=== PATIENT | male | born 1940 | race Caucasian/White ===

== ENCOUNTER 2020-01-23 03:41 | Emergency (ER) | payer MEDICARE, BC ==
[~2020-01-23] VITALS: Ht 170 cm; Wt 79.8 kg
[2020-01-23 04:23] LABS: BASOPHILS % (AUTO) 0 % (0-10); EOSINOPHILS % (AUTO) 0 % (0-10); HEMATOCRIT 36 % (40-54); HEMOGLOBIN 12.2 G/DL (13.3-17.7); LYMPHOCYTES # (AUTO) 0.5 X 10^3 (1.0-4.0); LYMPHOCYTES % (AUTO) 12 % (12-44); MEAN CORPUSCULAR HEMOGLOBIN 30 PG (25-34); MEAN CORPUSCULAR HGB CONC 34 G/DL (32-36); MEAN CORPUSCULAR VOLUME 89 FL (80-99); MEAN PLATELET VOLUME 10.3 FL (7.4-10.4); MONOCYTES # (AUTO) 0.3 X 10^3 (0.0-1.0); MONOCYTES % (AUTO) 6 % (0-12); NEUTROPHILS # (AUTO) 3.6 X 10^3 (1.8-7.8); NEUTROPHILS % (AUTO) 82 % (42-75); PLATELET COUNT 180 10^3/uL (130-400); RED CELL DISTRIBUTION WIDTH 13.4 % (10.0-14.5); WHITE BLOOD COUNT 4.4 10^3/uL (4.3-11.0)
--- NOTE | 2020-01-23 04:30 | ED GU-Male ---
General Chief Complaint: - Urinary Stated Complaint: ABD PAIN Source: patient Exam Limitations: no limitations History of Present Illness Date Seen by Provider: Jan 23, 2020 Time Seen by Provider: 04:12 Initial Comments Patient presents to the emergency room by private conveyance with chief complaint of inability to urinate for almost 24 hours. In the lobby of the emergency room however he was able to urinate which took away his suprapubic pain and cramping. He has a history of prostatectomy years ago. He's also had a couple polyps removed surgically but no colostomy for many years before that. No other abdominal surgeries. No fevers chills cough dysuria, discharge or diarrhea. He had a bowel movement yesterday which was normal, formed. He is on some kind of experimental medication for his prostate but does not member the name. He did not call his primary care doctor or urologist. He is not on antibiotics. He is down visiting from [facility] with his son who lives and works locally. His only other significant medical history is hypertension for which he uses medication. Allergies and Home Medications Allergies Coded Allergies: No Known Drug Allergies (Unverified , 01/23/20) Patient Home Medication List Home Medication List Reviewed: Yes Review of Systems Review of Systems Constitutional: No chills, No diaphoresis EENTM: No ear pain, No eye pain Respiratory: No cough, No short of breath Cardiovascular: No chest pain, No edema Gastrointestinal: see HPI, abdominal pain; No constipation, No diarrhea, No loss of appetite, No nausea Genitourinary: see HPI; denies dysuria Musculoskeletal: No back pain, No joint pain All Other Systemes Reviewed Negative Unless Noted: Yes Past Rpkxczk-Ycthlw-Kvrkze Hx Patient Social History Alcohol Use: Denies Use Recreational Drug Use: No Smoking Status: Never a Smoker Recent Foreign Travel: No Contact w/Someone Who Travel: No Physical Abuse: No Sexual Abuse: No Mistreated: No Fear: No Physical Exam Vital Signs Vital Signs - First Documented 01/23/20 04:02 Temp 36.9 Pulse 81 Resp 20 B/P (MAP) 129/83 (98) O2 Delivery Room Air Capillary Refill : Height, Weight, BMI Height: '" Weight: lbs. oz. kg; BMI Method: General Appearance: WD/WN, no apparent distress HEENT: PERRL/EOMI, pharynx normal Neck: full range of motion, normal inspection Cardiovascular: normal peripheral pulses, regular rate, rhythm Respiratory: no respiratory distress, no accessory muscle use Gastrointestinal: normal bowel sounds, tenderness (suprapubic) Extremities: normal inspection, no pedal edema, normal capillary refill Neurologic/Psychiatric: alert, normal mood/affect, oriented x 3 Skin: normal color, warm/dry Progress/Results/Core Measures Suspected Sepsis SIRS Temperature: Pulse: Respiratory Rate: Laboratory Tests 01/23/20 04:12: White Blood Count 4.4 Blood Pressure / Mean: Laboratory Tests 01/23/20 04:12: Creatinine 0.96, Platelet Count 180, Total Bilirubin 0.6 Results/Orders Lab Results Laboratory Tests Test 01/23/20 04:12 01/23/20 04:39 Range/Units White Blood Count 4.4 4.3-11.0 10^3/uL Red Blood Count 4.06 L 4.35-5.85 10^6/uL Hemoglobin 12.2 L 13.3-17.7 G/DL Hematocrit 36 L 40-54 % Mean Corpuscular Volume 89 80-99 FL Mean Corpuscular Hemoglobin 30 25-34 PG Mean Corpuscular Hemoglobin Concent 34 32-36 G/DL Red Cell Distribution Width 13.4 10.0-14.5 % Platelet Count 180 130-400 10^3/uL Mean Platelet Volume 10.3 7.4-10.4 FL Neutrophils (%) (Auto) 82 H 42-75 % Lymphocytes (%) (Auto) 12 12-44 % Monocytes (%) (Auto) 6 0-12 % Eosinophils (%) (Auto) 0 0-10 % Basophils (%) (Auto) 0 0-10 % Neutrophils # (Auto) 3.6 1.8-7.8 X 10^3 Lymphocytes # (Auto) 0.5 L 1.0-4.0 X 10^3 Monocytes # (Auto) 0.3 0.0-1.0 X 10^3 Eosinophils # (Auto) 0.0 0.0-0.3 10^3/uL Basophils # (Auto) 0.0 0.0-0.1 10^3/uL Sodium Level 141 135-145 MMOL/L Potassium Level 3.8 3.6-5.0 MMOL/L Chloride Level 108 H 98-107 MMOL/L Carbon Dioxide Level 20 L 21-32 MMOL/L Anion Gap 13 5-14 MMOL/L Blood Urea Nitrogen 19 H 7-18 MG/DL Creatinine 0.96 0.60-1.30 MG/DL Estimat Glomerular Filtration Rate > 60 BUN/Creatinine Ratio 20 Glucose Level 121 H 70-105 MG/DL Calcium Level 9.0 8.5-10.1 MG/DL Corrected Calcium 9.1 8.5-10.1 MG/DL Total Bilirubin 0.6 0.1-1.0 MG/DL Aspartate Amino Transf (AST/SGOT) 76 H 5-34 U/L Alanine Aminotransferase (ALT/SGPT) 19 0-55 U/L Alkaline Phosphatase 63 40-136 U/L C-Reactive Protein High Sensitivity 0.77 H 0.00-0.50 MG/DL Total Protein 7.3 6.4-8.2 GM/DL Albumin 3.9 3.2-4.5 GM/DL Urine Color YELLOW Urine Clarity CLEAR Urine pH 5.5 5-9 Urine Specific Ceres 1.025 H 1.016-1.022 Urine Protein NEGATIVE NEGATIVE Urine Glucose (UA) NEGATIVE NEGATIVE Urine Ketones NEGATIVE NEGATIVE Urine Nitrite NEGATIVE NEGATIVE Urine Bilirubin NEGATIVE NEGATIVE Urine Urobilinogen 0.2 < = 1.0 MG/DL Urine Leukocyte Esterase NEGATIVE NEGATIVE Urine RBC (Auto) 3+ H NEGATIVE Urine RBC >100 H /HPF Urine WBC 0-2 /HPF Urine Squamous Epithelial Cells 0-2 /HPF Urine Crystals NONE /LPF Urine Bacteria TRACE /HPF Urine Casts NONE /LPF Urine Mucus MODERATE H /LPF Urine Culture Indicated NO My Orders Orders - VALENCIA YUEN Ua Culture If Indicated (01/23/20 03:43) Cbc With Automated Diff (01/23/20 03:43) Comprehensive Metabolic Panel (01/23/20 03:43) Hs C Reactive Protein (01/23/20 03:43) Ed Iv/Invasive Line Start (01/23/20 03:43) Vital Signs/I&O 01/23/20 04:02 Temp 36.9 Pulse 81 Resp 20 B/P (MAP) 129/83 (98) O2 Delivery Room Air Capillary Refill : Progress Note #1: Time: 04:28 Progress Note Well-appearing, aseptic vital signs with what appears to be urinary retention/obstruction however it seems to have at least partially improved itself when he was able urinate in the lobby bathroom. Unfortunately we were unable to intercept fast enough to collect a sample. We can check some basic labs to make sure he does not have any kind of-induced renal failure. We will al so get a bladder scan bedside and see if he has any residual and this was just overflow. Patient does not want anything for pain at this time. Status post prostatectomy so most likely he has scar tissue/strictures causing outflow obstruction. Progress Note #2: Time: 04:56 Progress Note Bladder scan revealed about 260 cc. Patient's been able to urinate another 100 cc and we sent that down for testing. Creatinine and complete blood count are unremarkable. Departure Impression Primary Impression: Urinary (tract) obstruction Disposition: 01 HOME, SELF-CARE Condition: Improved Departure-Patient Inst. Decision time for Depature: 05:09 Referrals: NO,LOCAL PHYSICIAN (PCP/Family) Primary Care Physician Patient Instructions: Urinary Retention (DC) Add. 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 During business hours please call your urologist and advise them of your difficulty urinating. Return to the ER promptly if you're having difficulty urinating, increasing pain, fever, nausea or other worrisome symptoms. All discharge instructions reviewed with patient and/or family. Voiced understanding. Scripts Tamsulosin HCl (Flomax) 0.4 Mg Cap 0.4 MG PO HS for 14 Days, #14 CAP 0 Refills Prov: VALENCIA YUEN 01/23/20 VALENCIA YUEN Jan 23, 2020 04:30
[2020-01-23 04:34] LABS: ALBUMIN 3.9 GM/DL (3.2-4.5); CHLORIDE 108 MMOL/L (98-107); POTASSIUM 3.8 MMOL/L (3.6-5.0); SODIUM 141 MMOL/L (135-145)
[2020-01-23 04:36] LABS: GLUCOSE 121 MG/DL (70-105)
[2020-01-23 04:37] LABS: TOTAL PROTEIN 7.3 GM/DL (6.4-8.2)
[2020-01-23 04:38] LABS: BILIRUBIN,TOTAL 0.6 MG/DL (0.1-1.0); CARBON DIOXIDE 20 MMOL/L (21-32)
[2020-01-23 04:40] LABS: ALKALINE PHOSPHATASE 63 U/L (40-136); CREATININE SERUM 0.96 MG/DL (0.60-1.30); GFR ESTIMATED > 60
[2020-01-23 04:41] LABS: BUN/CREATININE RATIO 20
[2020-01-23 04:43] LABS: ALANINE AMINOTRANSFERASE 19 U/L (0-55)
[2020-01-23 04:49] LABS: BILIRUBIN,URINE NEGATIVE (NEGATIVE); CLARITY,URINE CLEAR; COLOR,URINE YELLOW; GLUCOSE, URINE (UA) NEGATIVE (NEGATIVE); KETONES,URINE NEGATIVE (NEGATIVE); LEUKOCYTE ESTERASE ,URINE NEGATIVE (NEGATIVE); NITRITE,URINE NEGATIVE (NEGATIVE); PH,URINE 5.5 (5-9); PROTEIN,URINE NEGATIVE (NEGATIVE)
[2020-01-23 05:04] LABS: BACTERIA,URINE TRACE /HPF; RBC,URINE >100 /HPF; SQUAMOUS EPITHELIAL CELL,UR 0-2 /HPF; WBC,URINE 0-2 /HPF
[2020-01-23] MEDS ORDERED: TMSL.4C PO (05:10)
[2020-01-23 05:19] VITALS: BP 109/71
== END 2020-01-23 05:20 | disposition home or self-care (01) ==
LOC: ER 03:45
DX: N13.9 Obstructive and reflux uropathy, unspecified (principal); I10 Essential (primary) hypertension
CPT/HCPCS: 36415; 80053; 81000; 85025; 86141